=== PATIENT | female | born 1970 | race Caucasian/White ===

== ENCOUNTER 2017-04-30 16:25 | Emergency (ER) | payer OTHER ==
[~2017-04-30] VITALS: Ht 167.6 cm; Wt 122.5 kg
[2017-04-30 16:29] VITALS: BP 174/112
[2017-04-30] MEDS ORDERED: LEVOTHYROXINE 0.15MG PO (16:52)
[2017-04-30] MEDS ORDERED: TRAMADOL 50 MG50 MG PO (17:55)
== END 2017-04-30 18:14 | disposition home or self-care (01) ==
LOC: ER 16:25
DX: S80.11XA Contusion of right lower leg, initial encounter (principal); Z90.710 Acquired absence of both cervix and uterus; Z88.5 Allergy status to narcotic agent; W18.31XA Fall on same level due to stepping on an object, initial encounter; Y93.89 Activity, other specified; Y92.828 Other wilderness area as the place of occurrence of the external cause; Y99.8 Other external cause status

== ENCOUNTER 2019-09-14 09:21 | Emergency (ER) | payer OTHER ==
[~2019-09-14] VITALS: Ht 167.6 cm; Wt 132.3 kg
[~2019-09-14 09:21] MED LIST: LEVOTHYROXINE 0.15MG PO; TRAMADOL 50 MG50 MG PO
[2019-09-14] MEDS ORDERED: NORVASC 2.5 MG2.5 M1 PO (09:43)
[2019-09-14 09:58] LABS: URINE BILIRUBIN NEGATIVE (Negative); URINE BLOOD 1+ (Negative); URINE CLARITY CLEAR; URINE COLOR YELLOW; URINE GLUCOSE-RANDOM* NEGATIVE (Negative); URINE KETONES NEGATIVE (Negative); URINE LEUKOCYTES-REFLEX TRACE (Negative); URINE NITRITE-REFLEX NEGATIVE (Negative); URINE PROTEIN (DIPSTICK) NEGATIVE (Negative); URINE SPECIFIC GRAVITY 1.025 (1.005-1.035); URINE UROBILINOGEN 0.2 E.U./dl (0.2-1.0)
[2019-09-14 10:24] LABS: CASTS None Seen /LPF (None Seen); MUCUS 0-3 Light strn/LPF (None Seen); SQUAMOUS 0-3 Few /LPF (0-3)
[2019-09-14 10:25] LABS: BACTERIA-REFLEX 1-9 Few /HPF (None Seen); CRYSTALS None Seen /LPF (None Seen); URINE RBC 3-10 Few /HPF (0-2); URINE WBC-REFLEX 0-5 Rare /HPF (0-5)
[2019-09-14 10:47] LABS: ABSOLUTE NEUTROPHILS 3.9 thou/uL (1.4-8.2); BASOPHILS 0.8 % (0.0-2.0); EOSINOPHILS 2.3 % (0.0-3.0); HEMATOCRIT 35.4 % (37.0-47.0); HEMOGLOBIN 11.7 gm/dL (12.0-15.0); LYMPHOCYTES 35.8 % (24.0-44.0); MCH 29.6 pg (26.0-34.0); MCV 89.8 fL (80.0-100.0); MONOCYTES 9.6 % (1.0-8.0); PLATELET COUNT 210 thou/uL (150-400); POLYS 51.5 % (36.0-66.0); RBC 3.94 mil/uL (4.20-5.00); RDW 14.2 % (10.5-14.5); WBC 7.6 thou/uL (4.0-11.0)
[2019-09-14 10:56] LABS: CALCIUM 8.5 mg/dL (8.5-10.1); CREATININE 0.8 mg/dL (0.6-1.0); POTASSIUM 3.8 mmol/L (3.5-5.1)
[2019-09-14 11:01] LABS: ALBUMIN 3.2 g/dL (3.4-5.0); APTT 27.5 Seconds (24.5-32.8); PROTIME 10.5 Seconds (9.3-11.4); TOTAL BILIRUBIN 0.2 mg/dL (<0.1-1.0); TOTAL PROTEIN 6.6 g/dL (6.4-8.2)
[2019-09-14 11:02] LABS: MAGNESIUM 1.9 mg/dL (1.8-2.4); TROPONIN-I <0.06 ng/mL (<0.06)
[2019-09-14] MEDS ORDERED: NAPROSYN500 MG PO (12:30)
[2019-09-14] MEDS ORDERED: NORFLEX100 MG PO (12:30)
[2019-09-14] MEDS ORDERED: TRAMADOL 50 MG50 MG PO (12:30)
[2019-09-14 13:08] VITALS: BP 148/84
--- NOTE | 2019-09-15 08:35 | EKG ---
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
== END 2019-09-14 13:08 | disposition home or self-care (01) ==
LOC: ER 09:21
PROVIDERS: Emergency Medicine
DX: N20.0 Calculus of kidney (principal); K42.9 Umbilical hernia without obstruction or gangrene; R19.7 Diarrhea, unspecified; R60.0 Localized edema; R31.29 Other microscopic hematuria

== ENCOUNTER 2020-02-05 07:06 | Emergency (ER) | payer OTHER ==
[~2020-02-05] VITALS: Ht 167.6 cm; Wt 127.0 kg
[~2020-02-05 07:06] MED LIST changes: +NAPROSYN500 MG PO; +NORFLEX100 MG PO; +NORVASC 2.5 MG2.5 M1 PO
[2020-02-05 08:47] LABS: HEMATOCRIT 37.3 % (37.0-47.0); HEMOGLOBIN 12.3 gm/dL (12.0-15.0); MCH 29.7 pg (26.0-34.0); MCHC 32.9 g/dL (28.0-37.0); MCV 90.4 fL (80.0-100.0); MONOCYTES 8.3 % (1.0-8.0); PLATELET COUNT 243 thou/uL (150-400); POLYS 54.7 % (36.0-66.0); RBC 4.12 mil/uL (4.20-5.00); RDW 14.6 % (10.5-14.5); WBC 7.3 thou/uL (4.0-11.0)
[2020-02-05 08:50] LABS: URINE BILIRUBIN NEGATIVE (Negative); URINE BLOOD NEGATIVE (Negative); URINE CLARITY CLOUDY; URINE COLOR YELLOW; URINE GLUCOSE-RANDOM* NEGATIVE (Negative); URINE KETONES NEGATIVE (Negative); URINE LEUKOCYTES-REFLEX TRACE (Negative); URINE NITRITE-REFLEX NEGATIVE (Negative); URINE PROTEIN (DIPSTICK) NEGATIVE (Negative); URINE SPECIFIC GRAVITY >= 1.030 (1.005-1.035); URINE UROBILINOGEN 0.2 E.U./dl (0.2-1.0)
[2020-02-05 08:56] LABS: ANION GAP 7 mmol/L (7-16); BUN 17 mg/dL (7-18); CALCIUM 8.8 mg/dL (8.5-10.1); CHLORIDE 102 mmol/L (98-107); CO2 27 mmol/L (21-32); CREATININE 0.9 mg/dL (0.6-1.0); GLUCOSE 94 mg/dL (74-106); POTASSIUM 4.4 mmol/L (3.5-5.1); SODIUM 136 mmol/L (136-145)
[2020-02-05 09:07] LABS: ALBUMIN 3.5 g/dL (3.4-5.0); LIPASE 187 U/L (73-393); SGOT 30 U/L (15-37); SGPT 33 U/L (30-65); TOTAL BILIRUBIN 0.4 mg/dL (<0.1-1.0); TOTAL PROTEIN 7.4 g/dL (6.4-8.2); TROPONIN-I <0.06 ng/mL (<0.06)
[2020-02-05] MEDS ORDERED: NORFLEX100 MG PO (09:47)
[2020-02-05] MEDS ORDERED: NAPROSYN500 MG PO (09:47)
[2020-02-05] MEDS ORDERED: TRAMADOL 50 MG50 MG PO (09:47)
[2020-02-05 10:00] VITALS: BP 137/86
--- NOTE | 2020-02-05 15:47 | EKG ---
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
== END 2020-02-05 10:15 | disposition home or self-care (01) ==
LOC: ER 07:06
PROVIDERS: Emergency Medicine
DX: M54.5 Low back pain (principal); R11.0 Nausea; R10.31 Right lower quadrant pain; E66.9 Obesity, unspecified; Z79.899 Other long term (current) drug therapy; Z87.442 Personal history of urinary calculi; Z90.710 Acquired absence of both cervix and uterus; Z90.49 Acquired absence of other specified parts of digestive tract

== ENCOUNTER 2021-06-09 13:34 | Emergency (ER) | payer OTHER ==
[~2021-06-09] VITALS: Ht 167.6 cm; Wt 134.7 kg
[2021-06-09] MEDS ORDERED: ULTRAM 50MG TAB50 MG PO (15:06)
[2021-06-09 15:33] VITALS: BP 162/99
== END 2021-06-09 15:33 | disposition home or self-care (01) ==
LOC: ER 13:34
DX: M25.561 Pain in right knee (principal); M25.531 Pain in right wrist; Z90.710 Acquired absence of both cervix and uterus; Z90.89 Acquired absence of other organs; Z79.899 Other long term (current) drug therapy; Z88.6 Allergy status to analgesic agent; W19.XXXA Unspecified fall, initial encounter; Y93.89 Activity, other specified; Y92.89 Other specified places as the place of occurrence of the external cause; Y99.8 Other external cause status